=== PATIENT | male | born 1990 | race Caucasian/White ===

== ENCOUNTER 2017-09-06 11:20 | Emergency (ER) | payer MEDICAID ==
[~2017-09-06] VITALS: Ht 180.3 cm; Wt 101.9 kg
[2017-09-06 11:23] VITALS: BP 122/63
[2017-09-06] MEDS ORDERED: MOXIFLOXACIN OPHTH O.5%, 3ML RIGHTEYE SCH (12:00)
== END 2017-09-06 13:35 | disposition home or self-care (01) ==
LOC: ED 12:06
DX: H16.041 Marginal corneal ulcer, right eye (principal)
CPT/HCPCS: 99283